=== PATIENT | female | born 1960 | race Caucasian/White ===

== ENCOUNTER → 2016-12-16 | Outpatient (CLI) | payer OTHER ==
[~2016-12-16] MED LIST: CLARINEX5 MG PO; NEXIUM PO; SINGULAIR PO
--- NOTE | ~2016-12-16 | MY11 ---
[facility] A Service of [facility] & [facility] RADIOLOGY TEXT RESULTS PATIENT: ROBERT GARCIA LOCATION: [facility] : 62 UNIT #: [id number] AGE: [address]: Cliff Andrew MD SEX: F ORDER DR: [id number] [address] [id number] O MR#: [id number] Acc #: [id number] NAME: ROBERT GARCIA. : 1960 SEX: F STUDY DATE/TIME: 12/16/2016 8:57 UNIT: [facility] ROOM: STUDY DESCRIPTION: MY Mammogram Screening Dig Luis Attending Physician: Cliff Andrew M.D. Referring Physician: Cliff Andrew M.D. Ordering Physician: Cliff Andrew M.D. Primary Care Physician: Boy Armas M.D. MEDICAL IMAGING REPORT This report is preliminary unless electronic signature is present. EXAM Bilateral digital screening mammogram with CAD DATE: 12/16/2016 HISTORY Right breast nodule excision 1997. No documented personal or family history of breast cancer or current complaints. COMPARISON Left breast diagnostic mammogram and ultrasound performed at [facility] 05/24/2016. Bilateral screening mammogram 12/17/2015, 11/29/2014, 11/23/2013. FINDINGS CC and MLO views were obtained of each breast utilizing digital technique and reviewed with an FDA-approved CAD device. Scattered fibroglandular densities are present bilaterally. Benign appearing intramammary lymph node in the upper outer left breast posterior third is unchanged. Linear marker is placed over the anterior right breast near the 12 o'clock axis denoting surgical scar. Scattered fibroglandular densities appears stable. No new or suspicious nodule is seen. There is no nonsurgical architectural distortion. No abnormal skin thickening or nipple retraction is identified. IMPRESSION BIRADS category 2. Benign findings. Routine bilateral screening mammograms recommended in year. Patients over the age of 40 are entered into a reminder system with target due date for the next mammogram. A result letter will also be sent to the [facility] A Service of [facility] & [facility] RADIOLOGY TEXT RESULTS PATIENT: ROBERT GARCIA LOCATION: [facility] : 62 UNIT #: [id number] AGE: [address]: Cliff Andrew MD SEX: F ORDER DR: patient. BIRADS: 2 - benign findings. Dictated by... Arin Tolbert M.D. THIS IS AN ELECTRONICALLY VERIFIED REPORT Arin Tolbert M.D. at 12/19/2016 8:30 AM [facility]/karie TD: 12/16/2016 13:53 JOB #: [id number] MEDICAL IMAGING REPORT Page 1 of 1
== END | disposition home or self-care (01) ==
LOC: SMAM 08:20
DX: Z12.31 Encounter for screening mammogram for malignant neoplasm of breast (principal)
CPT/HCPCS: G0202